=== PATIENT | female | born 1965 | race Caucasian/White ===

== ENCOUNTER 2016-02-19 19:40 | Emergency (ER) | payer BC ==
[2016-02-19 19:40] VITALS: BP 127/77
[2016-02-19] MEDS ORDERED: KETOROLAC TROMETHAMINE 60 MG/2 ML VIAL IM ONE ×2 (20:46→20:49)
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
== END 2016-02-19 20:56 | disposition home or self-care (01) ==
LOC: ER 19:40
DX: S40.011A Contusion of right shoulder, initial encounter (principal); F17.210 Nicotine dependence, cigarettes, uncomplicated; Z85.41 Personal history of malignant neoplasm of cervix uteri; E11.9 Type 2 diabetes mellitus without complications; K21.9 Gastro-esophageal reflux disease without esophagitis; W00.0XXA Fall on same level due to ice and snow, initial encounter